=== PATIENT | female | born 2000 | race Caucasian/White ===

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

== ENCOUNTER → 2023-01-11 13:28 | Outpatient (CLI) | payer BC, SELFPAY ==
--- NOTE | ~2023-01-11 | US_ITS ---
EXAMINATION: US pelvic complete w TV DATE: 01/11/2023 14:05 INDICATION: Intra-abdominal and pelvic swelling. TECHNIQUE: Multiple transabdominal and transvaginal sonographic images of the pelvis were obtained. COMPARISON: None. FINDINGS: TRANSABDOMINAL ULTRASOUND: The uterus measures 7.9 x 3.5 x 4.3 cm. There is no free fluid in the pelvis. TRANSVAGINAL ULTRASOUND: The endometrial complex measures 5 mm in thickness. The right ovary measures 2.3 x 1.4 x 2.5 cm. The left ovary measures 3.1 x 1.8 x 1.9 cm. There is normal vascular flow in the ovaries. IMPRESSION: 1. Normal pelvis. Reviewed, dictated and finalized at location A. IMPRESSION: 1. Normal pelvis.
== END ==
PROVIDERS: PCP Obstetrics & Gynecology; Visit Provider Obstetrics & Gynecology
DX: R19.00 Intra-abdominal and pelvic swelling, mass and lump, unspecified site (principal)
CPT/HCPCS: 76830; 76856